=== PATIENT | female | born 1985 | race African-American/Black ===

== ENCOUNTER 2017-11-20 13:22 | Emergency (ER) | payer MEDICAID ==
[~2017-11-20] VITALS: Ht 172.7 cm; Wt 57.6 kg
[~2017-11-20 13:22] MED LIST: AZITHROMYCIN250 MG ORAL; CORTISPORIN EAR10 ML OTIC; DIFLUCAN150 MG PO; IBUPROFEN600 MG ORAL; PROTONIX40 M2 PO; ZITHROMAX250 MG ORAL
[2017-11-20 13:59] VITALS: BP 122/84
--- NOTE | 2017-11-20 14:17 | Emergency Room Report ---
History of Present Illness General Chief Complaint: Flu Like Symptoms Source: Patient Present Illness HPI 32-year-old female presents ED complaining of cough 3 week. States cough is productive with yellowish sputum. Notes body aches and chills. Afebrile in triage. Pain is dull, 6 out of 10, nonradiating. Denies sore throat or earache. Denies sick contacts or recent travel. No other aggravating relieving factors. Denies any other associated symptoms Allergies: Coded Allergies: No Known Allergies (Unverified , 06/29/14) Patient History Past Medical History: none Past Surgical History: none Pertinent Family History: none Social History: Denies: smoking, alcohol use, drug use Last Menstrual Period: 11/17/2017 Now: No Immunizations: UTD Reviewed Nursing Documentation: PMH: Agreed; PSxH: Agreed Nursing Documentation-PMH Past Medical History: No History, Except For Review of Systems All Other Systems: negative except mentioned in HPI Physical Exam Vital Signs Date Time Temp Pulse Resp B/P (MAP) Pulse Ox O2 Delivery O2 Flow Rate FiO2 11/20/17 13:40 98.0 101 18 122/84 97 Room Air 98.1 Sp02 EP Interpretation: reviewed, normal General Appearance: no apparent distress, alert, GCS 15, non-toxic Head: normocephalic, atraumatic Eyes: bilateral eye normal inspection, bilateral eye PERRL ENT: hearing grossly normal, normal pharynx, no angioedema, normal voice Neck: full range of motion, supple/symm/no masses Respiratory: chest non-tender, lungs clear, normal breath sounds, speaking full sentences Cardiovascular #1: regular rate, rhythm, no edema Cardiovascular #2: 2+ carotid (R), 2+ carotid (L), 2+ radial (R), 2+ radial (L) , 2+ dorsalis pedis (R), 2+ dorsalis pedis (L) Gastrointestinal: normal bowel sounds, non tender, soft, non-distended, no guarding, no rebound Rectal: deferred Genitourinary: normal inspection, no CVA tenderness Musculoskeletal: back normal, gait/station normal, normal range of motion, non- tender Neurologic: alert, oriented x3, responsive, motor strength/tone normal, sensory intact, speech normal Psychiatric: judgement/insight normal, memory normal, mood/affect normal, no suicidal/homicidal ideation Reflexes: 3+ bicep (R), 3+ bicep (L), 3+ tricep (R), 3+ tricep (L), 3+ knee (R) , 3+ knee (L) Skin: normal color, no rash, warm/dry, well hydrated Lymphatic: no adenopathy Medical Decision Making Diagnostic Impression: Primary Impression: Atypical pneumonia ER Course Hospital Course 32-year-old female presents ED complaining of bodyaches and cough x3 weeks Differential diagnoses include: URI, pharyngitis, otitis media, asthma Clinical course Patient placed on stretcher. After initial history, physical exam reveals a female in no acute distress. Bilateral TM unremarkable. No pharyngeal erythema. No tonsillar exudates. No lymphadenopathy. lungs clear. abdomen soft. CXR shows no definitve lobar infiltrate Presentation consistent with atypical pneumonia. Given presentation, i will prescribe abx. recommend close followup with PMD. patient safe for discharge Diagnosis - atypical pneumonia Stable and discharged home with Rx Amoxicillin. Instructed to followup with PMD. Return to ED if symptoms recur or worsen Chest X-Ray Diagnostic Results Chest X-Ray Diagnostic Results : Chest X-Ray Ordered: Yes # of Views/Limited/Complete: 1 View Indication: Other - cough EP Interpretation: Yes Interpretation: no consolidation, no effusion, no pneumothorax, no acute cardiopulmonary disease Impression: No acute disease Electronically Signed by: Electronically signed by Parminder Carpio MD Last Vital Signs Date Time Temp Pulse Resp B/P (MAP) Pulse Ox O2 Delivery O2 Flow Rate FiO2 11/20/17 13:59 101 18 Room Air 11/20/17 13:59 98.1 122/84 97 98.1 Status: improved Disposition: HOME, SELF-CARE Condition: Stable Scripts Amoxicillin* (AMOXIL*) 500 Mg Capsule 500 MG ORAL THREE TIMES A DAY, #21 CAP Prov: Parminder Carpio MD 11/20/17 Parminder Carpio MD Nov 20, 2017 14:17
[2017-11-20] MEDS ORDERED: AMOXICILLIN500 MG ORAL (14:55)
--- NOTE | 2017-11-20 15:20 | Diagnostic Imaging Report ---
Indication: Dyspnea Comparison: None A single view chest radiograph was obtained. Findings: Cardiomediastinal appearance is within normal limits for age. Pulmonary vascularity is appropriate. The diaphragmatic contour is smooth and costophrenic angles are sharp. No pleural effusions are identified. The bones are unremarkable. Impression: No acute findings
[2017-11-20 15:27] VITALS: BP 122/84
== END 2017-11-20 15:37 | disposition home or self-care (01) ==
LOC: EMR 15:19
DX: J18.9 Pneumonia, unspecified organism (principal)
CPT/HCPCS: 71045; 99283